=== PATIENT | male | born 1970 ===

== ENCOUNTER 2020-07-07 15:01 | Emergency (ER) ==
[~2020-07-07 15:01] MED LIST: Iopamidol-370 76% 500 ML 1 ML ONE
[2020-07-07 15:29] LABS: #Basophils 0.1 thou/uL (0.0-0.2); #Eosinphils 0.1 thou/uL (0.0-0.7); #Lymphocytes 2.7 thou/uL (1.20-3.40); #Monocytes 0.5 thou/uL (0.11-0.59); #Neutrophils 3.2 thou/uL (1.40-6.50); %Basophils 1.2 % (0.0-1.0); %Eosinophils 1.8 % (0.0-10.0); %Lymphocytes 40.6 % (21.0-51.0); %Neutrophils 48.5 % (42.0-75.0); Hemoglobin 14.4 g/dL (14.0-18.0); Mean Corpuscular HGB CONC 33.5 g/dL (32.0-36.0); Mean Corpuscular Volume 86.4 fL (78.0-98.0); Mean Platelet Volume 7.7 fL (7.4-10.4); Platelet Count 276 thou/uL (130-400); RBC Distribution Width 11.9 % (11.5-14.5); Red Blood Cell (RBC) Count 4.96 mill/uL (4.70-6.10); White Blood Cell (WBC) Count 6.6 thou/uL (4.8-10.8)
--- NOTE | 2020-07-07 15:49 | CT ---
CTA OF THE CHEST AND ABDOMEN UTILIZING AN AORTIC DISSECTION PROTOCOL AND 3-D REFORMATTED IMAGING INDICATION: 50-year-old male with hypotension and audible pop with a bowel movement COMPARISON: None FINDINGS: Aorta: No acute aortic stenosis, occlusion or aneurysmal formation demonstrated. Central pulmonary artery: No central pulmonary embolus demonstrated. Additional thorax findings: No focal consolidation, pleural effusion or pneumothorax is evident. Additional abdominal findings: No hemodynamically significant stenosis is seen involving the celiac, SMA and VALERIA arteries. The duplicated renal arteries appear patent. Both common iliac arteries and iliac bifurcations are patent. There is fatty infiltration of the liver. The visualized adrenal gland s, kidneys, pancreas and spleen appear within normal limits. There is a normal appendix in the right lower quadrant. There is a mild amount retained stool within the colon. Osseous structures: No acute osseous abnormality. IMPRESSION: 1. No appreciable aortic stenosis, occlusion or aneurysmal formation demonstrated. 2. Fatty liver.
[2020-07-07 15:57] LABS: ALT (SGPT) 57 U/L (8-55); AST (SGOT) 37 U/L (5-34); Albumin 4.2 g/dL (3.5-5.0); Alkaline Phosphatase 89 U/L (40-110); Anion Gap 14 mmol/L (10-20); BUN (Urea Nitrogen) 19 mg/dL (8.4-25.7); Bilirubin, Total 0.9 mg/dL (0.2-1.2); CK (CPK) 247 U/L (30-200); Calc. Creatinine Clearance 0 mL/min (70-130); Calcium 8.8 mg/dL (7.8-10.44); Carbon Dioxide 23 mmol/L (22-29); Chloride 103 mmol/L (98-107); Globulin 3.3 g/dL (2.4-3.5); Glucose 141 mg/dL (70-105); Potassium 3.5 mmol/L (3.5-5.1); Protein, Total 7.5 g/dL (6.0-8.3); Sodium 136 mmol/L (136-145)
--- NOTE | 2020-07-24 21:52 | EKG ---
Test Reason : Blood Pressure : / mmHG Vent. Rate : 079 BPM Atrial Rate : 079 BPM P-R Int : 122 ms QRS Dur : 100 ms QT Int : 384 ms P-R-T Axes : 034 -20 -05 degrees QTc Int : 440 ms Normal sinus rhythm Normal ECG Confirmed by ROJELIO GUY DO ([id number]), assignment desk editor PAWEL MONTES ([id number] on 07/24/2020 9:52:13 PM Referred By: Confirmed By:ROJELIO GUY DO
== END 2020-07-07 16:10 | disposition home or self-care (01) ==
LOC: ERS 15:01
DX: R55 Syncope and collapse (principal); R10.30 Lower abdominal pain, unspecified; R10.813 Right lower quadrant abdominal tenderness; I10 Essential (primary) hypertension; Z79.899 Other long term (current) drug therapy
CPT/HCPCS: 36415; 71275; 74174; 80053; 82550; 84484; 85025; 93005; Q9967